=== PATIENT | female | born 1985 | race Caucasian/White ===

== ENCOUNTER 2017-06-12 07:12 | Emergency (ER) | payer OTHER ==
[~2017-06-12] VITALS: Ht 167.6 cm; Wt 69.1 kg
[~2017-06-12 07:12] MED LIST: CALCIUM 6001 TA1 PO; CALCIUM1 CAP PO; CALCIUM600 M1 PO; METHERGINE0.2 MG/TAB PO; MOTRIN 600600 MG/TAB PO; PRENATAL1 TA1 PO; XANAX .25M0.25 MG/TA PO; ZANTAC15 MG/ML PO; ZANTAC150 MG PO
[2017-06-12 07:20] VITALS: BP 122/85; TEMP 98.3
[2017-06-12] MEDS ORDERED: ZOLOFT 50MG50 MG PO (07:23)
[2017-06-12 07:59] LABS: BASO % 1.1 % (0.0-2.0); EOS # 0.2 (0.0-0.7); EOS % 4.8 % (0-4.0); GRAN # 2.1 (1.4-6.5); GRAN % 56.7 % (42.2-75.2); HEMATOCRIT 38.9 % (37.0-47.0); HEMOGLOBIN 12.8 g/dl (12.5-16.0); LYMPH # 1.1 (1.2-3.4); LYMPH % 28.6 % (20.0-51.0); MEAN CELL VOLUME 88 fl (80.0-100.0); MEAN CORPUSCULAR HEMOGLOBIN 29 pg (27.0-31.0); MEAN CORPUSCULAR HGB CONC 33 g/dl (33.0-37.0); MONO # 0.3 (0.1-0.6); MONO % 8.5 % (1.7-9.3); PLATELET COUNT 159 K/mm3 (130-400); WHITE BLOOD COUNT 3.8 K/mm3 (4.8-10.8)
[2017-06-12 08:12] LABS: PARTIAL THROMBOPLASTIN TIME 23.3 SECONDS (26.0-37.0)
[2017-06-12 08:17] LABS: ADJUSTED CALCIUM 8.5 mg/dL (8.4-10.2); ALANINE AMINOTRANSFERASE 25 U/L (9-52); ALBUMIN 4.7 gm/dL (3.5-5.0); ALKALINE PHOSPHATASE 50 U/L (50-136); ANION GAP 10 mmol/L (7-16); BILIRUBIN,TOTAL 0.8 mg/dL (0.0-1.0); BLOOD UREA NITROGEN 13 mg/dL (7-17); CALCIUM 9.1 mg/dL (8.4-10.2); CARBON DIOXIDE 27 mmol/L (22-30); CHLORIDE 101 mmol/L (98-107); CREATININE, serum 0.75 mg/dL (0.52-1.25); GLUCOSE 104 mg/dL (74-106); POTASSIUM 3.5 mmol/L (3.4-5.0); SODIUM 137 mmol/L (137-145); TOTAL PROTEIN 7.5 gm/dL (6.4-8.2)
[2017-06-12 08:28] LABS: TROPONIN-I < 0.012 ng/mL (0.000-0.034)
[2017-06-12 09:40] VITALS: PULSE 78
== END 2017-06-12 10:04 | disposition home or self-care (01) ==
LOC: COL.ER 07:12
PROVIDERS: Emergency Medicine
DX: F41.9 Anxiety disorder, unspecified (principal); R07.89 Other chest pain; R00.2 Palpitations; Z82.49 Family history of ischemic heart disease and other diseases of the circulatory system; Z98.890 Other specified postprocedural states

== ENCOUNTER → 2021-03-08 | Outpatient (CLI) | payer OTHER ==
[~2021-03-08] MED LIST changes: +ZOLOFT 50MG50 MG PO
== END ==
LOC: COL.RAD 09:52
DX: R10.11 Right upper quadrant pain (principal)
CPT/HCPCS: A9537

== ENCOUNTER 2023-09-24 14:30 | Outpatient (RCR) | payer OTHER | END 2023-09-28 | disposition home or self-care (01) | LOC: PT.GENESIS | DX: M25.552 Pain in left hip (principal); M35.7 Hypermobility syndrome ==

== ENCOUNTER → 2024-02-26 | Outpatient (CLI) | payer OTHER | LOC: MC.RAD 13:47 | DX: Z12.31 Encounter for screening mammogram for malignant neoplasm of breast (principal) ==